=== PATIENT | male | born 1940 | race Caucasian/White ===

== ENCOUNTER 2017-06-15 00:11 | Observation (INO) | payer OTHER ==
[2017-06-15] MEDS ORDERED: Albuterol/Ipratropium NEB.SOL* Albuterol 2.5 MG/Ipratropium 0.5 MG 3 ML INH ONE ×3 (01:19→03:30)
[2017-06-15] MEDS ORDERED: Albuterol/Ipratropium NEB.SOL* Albuterol 2.5 MG/Ipratropium 0.5 MG 3 ML ONE (01:44)
[2017-06-15] MEDS ORDERED: methylPREDNISolone 125 MG* 2 ML VIAL IV ONE (01:45)
[2017-06-15 01:57] LABS: Hematocrit 41 % (42-52); Hemoglobin 13.8 g/dl (14.0-18.0); Mean Corpuscular HGB Conc 34 g/dl (31-36); Mean Corpuscular Hemoglobin 32 pg (27-31); Mean Corpuscular Volume 95 fL (80-94); Mean Platelet Volume 9 um3 (7.4-10.4); Red Blood Count 4.31 10^6/ul (4.0-5.4); Red Cell Distribution Width 14 % (10.5-15); White Blood Count 7.5 10^3/ul (3.5-10.8)
[2017-06-15 02:10] LABS: Albumin 3.8 g/dL (3.2-5.2); BUN/Creatinine Ratio 17.1 (8-20); C Reactive Protein 33.27 mg/L (< 5.00); Calcium 8.6 mg/dL (8.6-10.3); EGFR African American 87.9 (>60); EGFR Non-African American 68.3 (>60); Globulin 3.1 g/dL (2-4); Potassium 4.1 mmol/L (3.5-5.0); Total Bilirubin 0.7 mg/dL (0.2-1.0); Total Protein 6.9 g/dL (6.4-8.9)
[2017-06-15 02:13] LABS: Troponin I 0.01 ng/mL (<0.04)
[2017-06-15 02:28] LABS: TSH (Thyroid Stimulating Horm) 2.78 mcIU/mL (0.34-5.60)
[2017-06-15] MEDS ORDERED: Azithromycin IV(*) 500 MG in NS 0.9% 250 ML* 250 ML IVPB ONE (04:04)
[2017-06-15] MEDS ORDERED: cefTRIAXone(*) 1 GM in NS 0.9% 50 ML* 50 ML IVPB ONE (04:04)
[2017-06-15] MEDS ORDERED: Acetaminophen TAB* 325 MG PO ONE (04:22)
--- NOTE | 2017-06-15 04:43 | ED ---
Sae Lopez Thomas, scribed for Arturo Rosado MD on 06/15/17 at 0207 . Shortness of Breath - HPI Summary HPI Summary: The pt is a 76 y/o M with a Hx of CHF presenting to the ED c/o SOB that began yesterday and worsened today. The patient has treated the SOB with nothing E [employer]. He says that his current SOB does not feel like a CHF exacerbation; instead, it feels like bronchitis or PNA. He is on nebulizer treatment at time of evaluation which he says helps his SOB. Pt additionally c/o productive cough. Pt denies fever and CP. He is on diuretics, ASA 81, and Xarelto.PSHx of defibrillator and pacemaker. The patient is accompanied by two family members. - History of Current Complaint Chief Complaint: EDShortnessOfBreath Time Seen by Provider: 06/15/17 01:39 Hx Obtained From: Patient, Family/Card Grinder - two family members present Onset/Duration: Lasting Days - onset yesterday, Still Present, Worse Since - today Timing: Constant Dyspnea At: Rest Aggrevating Factors: Movement Alleviating Factors: Other - Nebulizer treatment Associated Signs & Symptoms: Negative - negative for CP and fever, Cough ( Productive) - Allergy/Home Medications Allergies/Adverse Reactions: Allergies Allergy/AdvReac Type Severity Reaction Status Date / Time No Known Allergies Allergy Verified 06/15/17 00:30 Home Medications: Home Medications Carvedilol [Coreg] 6.25 mg PO BID 06/15/17 [History Confirmed 06/15/17] Lisinopril [Zestril 5 MG-] 5 mg PO DAILY 06/15/17 [History Confirmed 06/15/17] Potassium Chloride [Micro-K] 10 meq PO DAILY 06/15/17 [History Confirmed ] PMH/Surg Hx/FS Hx/Imm Hx Previously Healthy: No Cardiovascular History: Reports: Hx Angina, Hx Auto Implanted Cardiovert Defib, Hx Congestive Heart Failure - 5 YEARS AGO, Hx Hypercholesterolemia, Hx Hypertension, Hx Pacemaker/ICD - 3-4 yrs ago following heart attack 4-5 yrs ago Respiratory History: Reports: Other Respiratory Problems/Disorders - seasonal allergies; occasionally uses resuce inhaler Comment Only: Hx Asthma - unknown, Hx Chronic Obstructive Pulmonary Disease ( COPD) - unknown GI History: Reports: Hx Gastroesophageal Reflux Disease History: Reports: Hx Benign Prostatic Hyperplasia, Other Problems/ Disorders - bladder cancer 2008 - Cancer History Cancer Type, Location and Year: bladder cancer, 2008 Hx Chemotherapy: Yes Hx Radiation Therapy: No - Surgical History Surgery Procedure, Year, and Place: multiple biopsies. bladder surgery 2008. mi with 2 stents 2010. hernia 2011. pacemaker/ aicd 2011. colonoscopy 2007- found polyps Hx Anesthesia Reactions: No Infectious Disease History: No Infectious Disease History: Denies: History Other Infectious Disease, Traveled Outside the [place] in Last 30 Days - Family History Known Family History: Positive: Cardiac Disease, Other - DENIES DM AND RENAL DISEASE - Social History Occupation: Retired Alcohol Use: Daily Alcohol Amount: 2 drinks per day Hx Substance Use: No Substance Use Type: Reports: None Hx Tobacco Use: Yes Smoking Status (MU): Former Smoker Review of Systems Negative: Fever Negative: Chest Pain Positive: Shortness Of Breath, Cough - productive All Other Systems Reviewed And Are Negative: Yes Physical Exam Triage Information Reviewed: Yes Vital Signs On Initial Exam: Initial Vitals Temp Pulse Resp BP Pulse Ox 97.3 F 80 22 134/69 89 06/15/17 00:15 06/15/17 00:15 06/15/17 00:15 06/15/17 00:15 06/15/17 00:15 Vital Signs Reviewed: Yes Appearance: Positive: Well-Appearing, No Pain Distress Skin: Positive: Warm, Skin Color Reflects Adequate Perfusion, Dry Head/Face: Positive: Normal Head/Face Inspection Eyes: Positive: EOMI, JAIR ENT: Positive: Normal ENT inspection Neck: Positive: Supple, Nontender Respiratory/Lung Sounds: Positive: Breath Sounds Present, Wheezes - bilaterally , Other - Moderately short of breath. Cardiovascular: Positive: RRR. Negative: Leg Edema Left, Leg Edema Right Abdomen Description: Positive: Nontender, Soft Bowel Sounds: Positive: Present Musculoskeletal: Positive: Normal, Strength/ROM Intact Neurological: Positive: Normal, Sensory/Motor Intact, Alert, Oriented to Person Place, Time Psychiatric: Positive: Affect/Mood Appropriate - Mitzi Coma Scale Coma Scale Total: 15 Diagnostics - Vital Signs Vital Signs Temp Pulse Resp BP Pulse Ox 06/15/17 01:48 96 06/15/17 01:39 69 18 100 06/15/17 01:30 75 33 129/73 97 06/15/17 01:09 132/68 06/15/17 00:15 97.3 F 80 22 134/69 89 - Laboratory Lab Results: Lab Results 06/15/17 Range/Units 01:24 WBC 7.5 (3.5-10.8) 10^3/ul RBC 4.31 (4.0-5.4) 10^6/ul Hgb 13.8 L (14.0-18.0) g/dl Hct 41 L (42-52) % MCV 95 H (80-94) fL MCH 32 H (27-31) pg MCHC 34 (31-36) g/dl RDW 14 (10.5-15) % Plt Count 168 (150-450) 10^3/ul MPV 9 (7.4-10.4) um3 Neut % (Auto) 78.3 (38-83) % Lymph % (Auto) 7.8 L (25-47) % [place] % (Auto) 12.7 H (1-9) % Eos % (Auto) 1.0 (0-6) % Baso % (Auto) 0.2 (0-2) % Absolute Neuts (auto) 5.9 (1.5-7.7) 10^3/ul Absolute Lymphs (auto) 0.6 L (1.0-4.8) 10^3/ul Absolute Monos (auto) 0.9 H (0-0.8) 10^3/ul Absolute Eos (auto) 0.1 (0-0.6) 10^3/ul Absolute Basos (auto) 0 (0-0.2) 10^3/ul Absolute Nucleated RBC 0 10^3/ul Nucleated RBC % 0 Result Diagrams: 06/15/17 01:24 06/15/17 01:24 Lab Statement: Any lab studies that have been ordered have been reviewed, and results considered in the medical decision making process. - Radiology CXR Radiology Interpretation Completed By: ED Physician - EKG 00:18 Cardiac Rate: NL - 79 BPM EKG Interpretation: Ventricular paced complex. Course/Dx - Course Course Of Treatment: BP noted and advised to follow up with PCP. Medications reviewed. IMPROVED IN ED BUT, STILL WHEEZING. ADMIT HOSPITALIST. - Diagnoses Provider Diagnoses: Bronchitis, COPD (chronic obstructive pulmonary disease) Discharge - Discharge Plan Condition: Fair Disposition: ADMITTED TO [facility] Referrals: Ranjit Alcocer MD [Primary Care Provider] - The documentation as recorded by the Sae hunt Thomas accurately reflects the service I personally performed and the decisions made by me, Arturo Rosado MD.
[2017-06-15] MEDS ORDERED: Benzonatate CAP* 100 MG PO PRN (06:51)
[2017-06-15] MEDS ORDERED: NS 0.9% 1000 ML* 1,000 ML IV SCH (07:00)
[2017-06-15] MEDS ORDERED: Nitroglycerin TAB 0.4 MG* 0.4 MG TAB SL PRN (07:36)
--- NOTE | 2017-06-15 07:45 | RAD ---
INDICATION: Short of breath COMPARISON: May 24, 2016 TECHNIQUE: An AP portable view obtained at 0200 hours is submitted. FINDINGS: Bones/Soft Tissues: There are no acute bony findings. There is a left-sided cardiac pacemaker/defibrillator Cardiomediastinal: The cardiac silhouette is enlarged. No interstitial congestion is seen.. Lungs: There are no infiltrates. Pleura: There are no pleural effusions. Other: None IMPRESSION: ENLARGED CARDIAC SILHOUETTE. PACEMAKER/DEFIBRILLATOR.
[2017-06-15] MEDS: Albuterol 2.5 MG/3 ML NEB.SOL* (0.083%) INH PRN (08:37)
[2017-06-15] MEDS: Famotidine TAB* 20 MG PO SCH (09:04)
[2017-06-15] MEDS: Lisinopril TAB* 5 MG PO SCH (09:04)
[2017-06-15] MEDS: guaiFENesin ER TAB 600 MG PO SCH ×2 (09:04→20:27)
[2017-06-15] MEDS: Potassium Chlor TAB* 10 MEQ TAB.ER PO SCH (09:05)
[2017-06-15] MEDS: Atorvastatin* 10 MG TAB PO SCH (09:05)
[2017-06-15] MEDS: Aspirin Low Dose CHEW TAB* 81 MG PO SCH (09:06)
[2017-06-15] MEDS: Vitamin THERAPEUTIC TAB PO SCH (09:06)
[2017-06-15] MEDS: Rivaroxaban TAB(*) 20 MG TAB PO SCH (09:06)
[2017-06-15] MEDS: Carvedilol TAB* 6.25 MG PO SCH ×2 (09:06→20:27)
[2017-06-15 09:38] LABS: Urine Bilirubin Negative (Negative); Urine Glucose Negative (Negative); Urine Nitrite Negative (Negative)
[2017-06-15] MEDS: Fluticasone NASAL SPRAY 50MCG* 16 gm SPRAY BTL BOTH NARES SCH (10:15)
--- NOTE | 2017-06-15 10:50 | HP ---
CC: Dr. Zimmer * HISTORY AND PHYSICAL: DATE OF ADMISSION: 06/15/17 PRIMARY CARE PROVIDER: Dr. Zimmer. CHIEF COMPLAINT: Shortness of breath. HISTORY OF PRESENT ILLNESS: Mr. Fitzpatrick is a 76-year-old male with extensive cardiac history, hypertension, hyperlipidemia, and bladder cancer who presents to the emergency room with complaints of progressive shortness of breath. The patient states that beginning approximately couple of days ago, began to feel very fatigued and mildly short of breath. The shortness of breath progressed to the point where yesterday he felt that he was unable to walk any significant distance without becoming severely winded. The patient has noted some moderate cough and sputum production. He felt that initially the sputum was clear. However, he did cough in front of me in the emergency room, the sputum was yellow green in color. The patient denies any fevers at home, but does state that two days ago, he had significant chills. 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 He denies any chest pain, PAST MEDICAL HISTORY: 1. CAD-STEMI, September 2010 with sudden cardiac arrest secondary to ventricular fibrillation post procedure, ICD placement 2011. 2. Bladder cancer stage 3. 3. Hyperlipidemia. 4. Hypertension. 5. BPH. 6. Atrial fibrillation. PAST SURGICAL HISTORY: 1. ICD placement. 2. Right inguinal hernia repair. 3. Left eye cataract extraction. MEDICATIONS: 1. Lisinopril 10 mg p.o. q.a.m., 5 mg p.o. q.p.m. 2. Xarelto 20 mg p.o. daily. 3. Pravastatin 20 mg p.o. daily. 4. Potassium chloride 10 mEq p.o. daily. 5. Coreg 6.25 mg p.o. b.i.d. 6. Hydrochlorothiazide 25 mg p.o. daily. 7. Flonase 2 squirts both nostrils daily. 8. Finasteride 5 mg p.o. q.h.s. 9. Pepcid 20 mg p.o. daily. 10. Aspirin 81 mg p.o. daily. 11. Nitroglycerin 0.4 mg SL q. 5 minutes p.r.n. chest pain. 12. Multivitamin 1 tab p.o. daily. ALLERGIES: No known drug allergies. FAMILY HISTORY: Mom in her 80s. She had a history of CVA. Dad at the age of 56 of an [facility]. SOCIAL HISTORY: The patient is a former smoker. He quit 50 years ago. He drinks 2 alcoholic beverages daily. 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 He is . He has 3 children. His Meghna would be his surrogate decision maker. REVIEW OF SYSTEMS: The patient denies any fevers, but does admit to chills and mild anorexia yesterday. No chest pain, no edema. He admits cough and shortness of breath as above. No abdominal pain, nausea, vomiting, constipation , diarrhea, or hematochezia, no hematuria, no dysuria, no focal weakness or sensory loss. No sudden changes in vision. No dysphagia. No joint pains, or muscle pains out of the ordinary. No rashes. No anxiety or depression. PHYSICAL EXAMINATION GENERAL: The patient is a well developed, elderly male, sitting in the stretcher, in no acute distress. VITAL SIGNS: Blood pressure 98/62, pulse 72, respirations 22, temp 99.6 (T-max 101.1), O2 sat 94% on 4 L. HEENT: Pupils are equal, they are round. There is evidence of left cataract extraction. Extraocular muscle are intact. Oropharynx is clear. Oral mucosa is moist. There is no submandibular, cervical, or supraclavicular adenopathy. NECK: Thyroid is not enlarged. No thyroid nodules are noted. PULMONARY: The patient has upper airway gurgling respirations; frequent, moist cough. Lungs are clear to auscultation bilaterally, though breath sounds are diminished at the left base. CARDIAC: Normal S1, S2. Regular rate and rhythm. I do not appreciate any murmurs. There is trace to 1+ bilateral lower extremity, pitting edema. ABDOMEN: Bowel sounds are present. Abdomen is soft, nontender, nondistended. MUSCULOSKELETAL: There is no cyanosis or clubbing of the digits. There is full active full range of motion of all 4 extremities. SKIN: Warm and dry. There are no rashes. The patient does have numerous seborrhoic keratoses noted on his back. NEUROLOGIC: Cranial nerves II through XII are grossly intact. Sensation is intact to light touch throughout. Strength is 5/5 and symmetric in both upper and lower extremities bilaterally. PSYCH: The patient is alert. He is oriented x3. Affect appears appropriate. LABORATORY DATA: WBC 7.5, hemoglobin 13.8, hematocrit 41, platelets 168, INR 1.32. Sodium 134, potassium 4.1, chloride 102, CO2 24, BUN 18, creatinine 1.05, glucose 118, lactic acid 0.9, calcium 8.6, magnesium 2.0. Bilirubin 0.7, AST 20 , ALT 18, alk phos 49, CPK 180, CK-MB 6, troponin 0.01, CRP 33.27, BNP 304. Albumin 3.8, lipase 20, TSH 2.78, influenza A and B negative. EKG reveals a ventricularly paced rhythm. Chest x-ray to my interpretation appears to be clear without any evidence of infiltrate or pulmonary edema. ASSESSMENT AND PLAN: Mr. Fitzpatrick is a 76-year-old male with extensive cardiac history, hypertension, hyperlipidemia, and benign prostatic hyperplasia who presents to the emergency room with complaints of progressive shortness of breath with associated cough, sputum production and chills. 1. Probable bronchitis. The patient appears to have bronchitis as there is no clear infiltrate noted on chest x-ray and no markedly elevated white blood cell count. The patient however is hypoxic with this. He is requiring 4 L of oxygen at this point to maintain a low 90 saturation. At this point, the patient will be admitted under observation status to the medical floor. He will continue on ceftriaxone and azithromycin for treatment of his bronchitis. At this point, I do not feel that he needs any IV steroids as he has no wheezing noted on exam. I will send off a sputum culture as well as urine legionella and Strep pneumoniae antigens. We will try to wean his O2 down to get him back to room air. 2. History of atrial fibrillation. Per the patient he states that a while ago his heart was noted to be "off." When I mentioned atrial fibrillation he states that that was what he as diagnosed with. He remains on Xarelto. At this point, he appears to be ventricularly paced on his EKG. 3. Coronary artery disease with ischemic cardiomyopathy. The patient will be maintained on his usual doses of Coreg and lisinopril. I have hold parameters on his lisinopril dose. I am going to hold his hydrochlorothiazide for now. We will be need to be mindful of not giving him too much fluid. At this point, I will however give him 1 L of normal saline. He has an ICD in place. 4. Hypertension. The patient's blood pressure has been under good control in the ER. He did dip into the 90s for a period of time, though his family state this is while he was sleeping. We will monitor this closely. 5. Hyperlipidemia. The patient will be maintained on statin. 6. Benign prostatic hyperplasia. The patient will continue on his usual dose of finasteride. 7. DVT prophylaxis. According to the Adult Thrombosis Prophylaxis Risk Factor Assessment Guide, the patient has a total risk factor score of 5, making him high risk. He is already on Xarelto and this will act as his DVT prophylaxis. 8. Code status is full and again the patient indicates that his , Meghna, would be his healthcare proxy. TIME SPENT: Sixty-five minutes was spent admitting this patient. [id number]/CPS #: [id number] MTDD
[2017-06-15] MEDS ORDERED: Lisinopril TAB* 5 MG PO SCH (21:00)
[2017-06-15] MEDS ORDERED: Finasteride TAB* 5 MG PO SCH (21:00)
[2017-06-16] MEDS ORDERED: cefTRIAXone VIAL(*) 1,000 MG in NS 0.9% 50 ML* 50 ML IVPB SCH (05:00)
[2017-06-16] MEDS ORDERED: Azithromycin IV(*) 500 MG in NS 0.9% 250 ML* 250 ML IVPB SCH (06:00)
[2017-06-16] MEDS: Rivaroxaban TAB(*) 20 MG TAB PO SCH (07:54)
[2017-06-16] MEDS: Carvedilol TAB* 6.25 MG PO SCH (07:54)
[2017-06-16] MEDS: Famotidine TAB* 20 MG PO SCH (07:54)
[2017-06-16] MEDS: Atorvastatin* 10 MG TAB PO SCH (07:54)
[2017-06-16] MEDS: guaiFENesin ER TAB 600 MG PO SCH (07:54)
[2017-06-16] MEDS: Potassium Chlor TAB* 10 MEQ TAB.ER PO SCH (07:54)
[2017-06-16] MEDS: Aspirin Low Dose CHEW TAB* 81 MG PO SCH (07:54)
[2017-06-16] MEDS: Lisinopril TAB* 5 MG PO SCH (07:55)
[2017-06-16] MEDS: Vitamin THERAPEUTIC TAB PO SCH (07:55)
[2017-06-16] MEDS: Fluticasone NASAL SPRAY 50MCG* 16 gm SPRAY BTL BOTH NARES SCH (07:57)
[2017-06-16] MEDS: Albuterol 2.5 MG/3 ML NEB.SOL* (0.083%) INH PRN (08:38)
[2017-06-16 12:01] VITALS: BP 104/70
--- NOTE | 2017-06-17 10:44 | DS ---
DISCHARGE SUMMARY: DATE OF ADMISSION: 06/15/17 DATE OF DISCHARGE: 06/16/17 PRIMARY CARE PHYSICIAN: Dr. Zimmer. MY ATTENDING WHILE IN THE HOSPITAL: Dr. Gregg Hawk * (DICTATED BY DOMINGO SOLIMAN) PRIMARY DISCHARGE DIAGNOSIS: Bronchitis, possible pneumonia. SECONDARY DIAGNOSES: Coronary artery disease with STEMI, AFib, and ICD placement in 2012, stage III bladder cancer, hyperlipidemia, hypertension, BPH, and atrial fibrillation. STUDIES DONE WHILE IN THE HOSPITAL: Chest x-ray read as enlarged cardiac silhouette, pacemaker defibrillator. Electrocardiogram shows ventricular paced complexes. No ST segment changes. No other abnormalities. MEDICATIONS ON DISCHARGE: 1. Prevacid 20 mg p.o. daily. 2. Nitroglycerin 0.4 mg sublingually q.5 minutes as needed for chest pain. 3. Finasteride 5 mg p.o. at bedtime. 4. Lisinopril 10 mg p.o. daily. 5. Famotidine 20 mg p.o. daily. 6. Fluticasone 2 sprays both nares daily. 7. Aspirin 81 mg p.o. daily. 8. Multivitamins 1 cap p.o. daily. 9. Xarelto 20 mg p.o. daily. 10. Potassium chloride 10 mEq p.o. daily. 11. Lisinopril 5 mg p.o. at bedtime. 12. Carvedilol 6.25 mg p.o. b.i.d. New medications on discharge: 1. Albuterol inhaler 1 puff q.4 hours as needed for wheezing. 2. Tessalon 200 mg p.o. t.i.d. as needed for cough. 3. Cefpodoxime 200 mg p.o. q.12 hours x24. 4. Guaifenesin 1200 mg p.o. b.i.d. Medications discontinued on discharge: Hydrochlorothiazide 25 mg p.o. daily. HOSPITAL COURSE: This is a summary of the hospital course. For more details, please see history and physical from Dr. Ella Nielsen on 06/15/17. In brief, Mr. Fitzpatrick is a 76-year-old male who presented to the emergency department on 06/15/17 with a couple of days of increased fatigue and shortness of breath to the point where he could not walk a significant distance without getting winded. The patient also had a cough with sputum production of colored sputum. The patient was admitted to the hospital with a presumptive diagnosis of bronchitis and started on steroids, antibiotics, and inhalers. The patient began to feel better overnight. The patient was on 3 L of oxygen while in the emergency department and was able to wean off entirely overnight. The patient continued to have a cough. This improved with medication. The patient was able to walk 10 times around the unit without oxygen or becoming short of breath. The patient stated that he felt ready to go home in the morning. The patient's urine antigen for Strep pneumo was positive. The patient denies any other acute events overnight or any other complaints while in the hospital. PHYSICAL EXAMINATION AT DAY OF DISCHARGE: General: The patient is a 76-year- old male who appears his stated age and sitting comfortably in the recliner in the hospital. Vital signs at 07:55 on 06/16/17, temperature 97.5, pulse rate 65 , respiratory rate 16, oxygen saturation 98% on room air, blood pressure 129/ 73. HEENT: Head normocephalic, atraumatic. Eyes: Sclerae anicteric. No conjunctival injection. Mouth: Pharynx nonerythematous. Mucous membranes moist. Neck: Supple, nontender. No lymphadenopathy. No carotid bruits auscultated. Cardiac: Regular rate and rhythm. No clicks, murmurs, gallops, or rubs. Dorsalis pedis, posterior tibialis, and radial pulses 2+ bilaterally. No edema noted on exam. Respiratory: No accessory muscle use. There are rhonchorous sounds with slight wheezing heard throughout the lung arnold. There are no crackles and there is good air exchange bilaterally. The patient has a frequent cough. Abdomen: Nontender, nondistended. Bowel sounds present and normoactive in all 4 quadrants. No hepatosplenomegaly. No abdominal bruits auscultated. Genitourinary: No suprapubic tenderness or CVA tenderness. Neuro: Alert and oriented x3. Normal gait. Cranial nerves II through XII grossly intact. Skin: Clean, dry, and intact. No cyanosis or clubbing. LABORATORY DATA: White blood cell count 7.5, hemoglobin 13.8. This is from . Platelet count 168. INR 1.32. Sodium 134, potassium 4.1, chloride 102 , carbon dioxide 24, anion gap 8, BUN 18, creatinine 1.05, glucose 118. AST 20 , ALT 18. Troponin 9.01. CRP 33.27. BNP is 304. TSH 2.78. Urine shows 1+ ketones , otherwise benign. Influenza A and B negative. Negative Legionella. Positive S. pneumo urine antigen. Sputum Gram stain shows +2 neutrophils, +2 epithelial cells, 4+ gram-positive cocci, 3+ gram-negative bacilli, and 3+ gram- positive bacilli. DISCHARGE PLAN: The patient was discharged to home. The patient is stable enough and no longer needs supplementary oxygen. The patient will be prescribed albuterol, Tessalon, cefuroxime, and guaifenesin for home. The patient will not receive steroids due to dramatic improvement and history of CHF and diabetes. The patient will follow up with his primary care doctor in a week. The patient should return to the ED for shortness of breath where he feels he cannot catch his breath or walk as previously. The patient will stop taking hydrochlorothiazide due to normotensive state while in the hospital. The patient should follow up with his primary care doctor about when and if to resume his medication. TIME SPENT: Approximately 60 minutes were spent on this discharge, half of which was spent [id number] with the patient obtaining the history and physical and discussing treatment plans. DOMINGO SOLIMAN [id number]/CPS #: [id number] MTDD
== END 2017-06-16 12:00 | disposition home or self-care (01) ==
LOC: ED 00:11 → MED 06:51
PROVIDERS: ADMIT Hospitalist; ATTEND Hospitalist
DX: J40 Bronchitis, not specified as acute or chronic (principal); I25.10 Atherosclerotic heart disease of native coronary artery without angina pectoris; I48.91 Unspecified atrial fibrillation; I10 Essential (primary) hypertension; E78.5 Hyperlipidemia, unspecified; N40.0 Benign prostatic hyperplasia without lower urinary tract symptoms; Z95.810 Presence of automatic (implantable) cardiac defibrillator; C67.9 Malignant neoplasm of bladder, unspecified; Z79.01 Long term (current) use of anticoagulants; Z79.82 Long term (current) use of aspirin; Z79.899 Other long term (current) drug therapy; I25.2 Old myocardial infarction; Z87.891 Personal history of nicotine dependence
CPT/HCPCS: 36415; 71010; 80053; 81003; 82550; 82553; 83605; 83690; 83735; 83880; 84443; 84484; 85025; 85610; 85730; 86140; 87040; 87070; 87077; 87205; 87502; 87899; 93005; 94640; 99285; A9270-GY; G0378; J0456; J0696; J2930

== ENCOUNTER → 2018-09-18 10:17 | Day surgery (SDC) | payer MEDICARE ==
[~2018-09-18 10:17] MED LIST: Albuterol HFA INHALER* 8 gm MDI INH PRN; Aspirin 81 mg CHEW TAB* 81 MG TAB.CHEW PO SCH; CARVEDILOL 6.25 MG PO SCH; Diazepam TAB(*) 5 MG ONE; Finasteride TAB* 5 MG PO SCH; Heparin 2 UNITS/ML IVPREMIX* 2,000 ML IV ONE; Hydrochlorothiazide TAB* 50 MG PO SCH; Iodixanol 320 (CONTRAST) 100 ML SDV ONE; Lidocaine 1% INJ* 10 MG/ML 30 ML SDV ONE; Lisinopril TAB* 5 MG PO SCH; Midazolam* 1 MG/ML 10 ML VIAL (10 MG) ONE; NON FORMULARY MED* (Multivitamin [Multivitamins] 1 CAP) PO SCH; NS 0.9% 1000 ML* 1,000 ML IV SCH; Nitroglycerin TAB 0.4 MG* 0.4 MG TAB SL PRN; POTASSIUM CHLORIDE 10 MEQ PO SCH; PRAVASTATIN 20 MG PO SCH; Rivaroxaban TAB(*) 20 MG TAB PO SCH; fentaNYL* 50 MCG/ML 2 ML VIAL (100 MCG VIAL) ONE
[2018-09-18 16:13] VITALS: BP 120/79
--- NOTE | 2018-09-18 16:29 | CATH ---
CC: Dr. Michelle Zimmer; Dr. Lito Mendoza, [facility] * CARDIAC CATHETERIZATION REPORT: DATE OF PROCEDURE: 09/18/18 - [facility] CATH INDICATION FOR PROCEDURE: Asked by Dr. Lito Mendoza (the patient's primary associate manager) to perform diagnostic cardiac catheterization to reassess his coronary arteries in light of high-risk nuclear stress test suggesting significant left ventricular systolic dysfunction with prior large anteroapical and distal inferior wall myocardial infarction with prior history of stenting of the proximal LAD in the distant past. PROCEDURE: Coronary arteriography, left heart catheterization, left ventriculography. CONSENT: The patient was interviewed and examined in the holding area where the risks and benefits were explained. He understood them and wished to proceed. PRE-CARDIAC CATHETERIZATION LABORATORY RESULTS: Hemoglobin and hematocrit of 13.9 and 41, platelet count of 197,000. BUN and creatinine of 27 and 1.1, sodium 139, potassium 4.6, chloride 104, bicarb 30. MEDICATIONS GIVEN DURING THE PROCEDURE: Included: 1. 2.5 mg of Valium orally. 2. IV fluids. APPROACH UTILIZED: The right radial artery was assessed in the holding area by ultrasound and found to be of an appropriate size; however, the reverse Barbeau was a D. There were similar findings on the left radial approach as well. Decision was made to use the left femoral artery approach. EQUIPMENT UTILIZED: 1. Left femoral artery sheath, 11-cm [place] sheath. 2. Diagnostic coronary catheters, a [place] FL4 curve and a 5[place] FR4 curve catheter. 3. The diagnostic guidewire utilized was a 260 length J-tip exchange wire. 4. The left heart catheterization catheter was a [place] 145-degree angled pigtail catheter. 5. The closure device utilized was a 5-[place] Mynx closure device. DESCRIPTION OF PROCEDURE: The patient was scheduled for the diagnostic cardiac catheterization and his last dose of Xarelto was at least 48 hours prior to the procedure. He had received 2 doses of Lovenox the day before the procedure, 1 in the morning and 1 at night and has had no further Lovenox since the last night. He was worked into the cardiovascular laboratory where a formal time-out was performed. He was prepped and draped in sterile fashion. The left coronary was anesthetized with 1% lidocaine. The left femoral artery was cannulated using an anterior wall, only stick and the sheath was placed. Coronary arteriography was then performed followed by central aortic pressure utilizing the pigtail catheter in the ascending aorta. The catheter was then passed across the aortic valve into the left ventricle where left ventricular pressure was recorded and left ventriculography was performed utilizing a total of 28 cc of Visipaque dye at a rate of 14 cc per second. The catheter was then pulled back across the aortic valve to recheck gradient. Following this, an ejection was made into the left femoral sheath to assess eligibility to utilize a closure device. It was found to be acceptable for this and as such a 5-[place] Mynx closure device was deployed with good hemostasis. The patient tolerated the procedure well. The total contrast used was 93 cc of Visipaque dye. The radiation exposure included 4.2 minutes of fluoro time. The air kerma radiation was 1265 milligray. The DAP radiation was 7560 microgray per meter square. RESULTS: HEMODYNAMIC DATA: Left heart catheterization revealed central aortic pressure of 110/63 with a mean of 83. Left ventricular pressure was 112 over left ventricular end- diastolic pressure of 8 to 10 mmHg. LEFT VENTRICULOGRAPHY: Performed in the SERRANO projection, revealed severe global left ventricular hypokinesis involving the whole anteroapical and distal inferior wall. There appeared to be preservation of the basal inferior to mid inferior wall as well as the very most proximal portion of the anterior wall. The overall ejection fraction on a post PVC beat is estimated at 25% to 30%. CORONARY ARTERIOGRAPHY: A. Left coronary artery: 1. Left main - widely patient with no significant narrowing seen. 2. Left anterior descending artery - the proximal portion of the left anterior descending artery revealed a stent placed in it. There is mild in- stent restenosis in the proximal portion of 20%. The rest of the stent showed no significant in- stent restenosis. There was no significant disease seen through the LAD or its thin diagonal branches. The LAD tapered as it traversed to the apical region and to some degree onto the distal inferior wall. There were mild luminal irregularities within the mid portion of the left anterior descending artery in a clearly somewhat small caliber mid to distal LAD system. The proximal to mid portion of the LAD had mild 20% narrowing seen involving the distal portion of the stent. This did not appear to be in-stent restenosis. 3. Circumflex artery - a codominant vessel supplying a trifurcation marginal branch followed by a thin first obtuse marginal branch and a moderate bifurcating mid obtuse marginal branch. Past this point, there were multiple low-lying posterior left ventricular branches and a probable left-sided PDA. There was no significant disease seen throughout the circumflex system. Of note , several of the low-lying posterior LV branches were small in caliber diffusely. B. Right coronary artery - a possible codominant vessel, small in appearance , only supplying the most proximal portion of the inferior wall with a small caliber PDA. There were multiple right ventricular branches seen. The mid segment of this vessel had an area of 30% stenosis noted. OVERALL ASSESSMENT: No significant focal stenotic coronary artery disease with severe left ventricular systolic dysfunction most likely on the basis of an ischemic cardiomyopathy from prior myocardial infarction. Of note, left ventricular end- diastolic pressure was normal to low suggesting that he is currently in a good volume status. Continued ongoing aggressive medical management of LV dysfunction is appropriate. He already has an implantable defibrillator in place. Of note, his ICD is a BiV pacing ICD to optimize resynchronization. Continued ongoing cardiac care will be provided by his primary associate manager Dr. Kelly MD who was made aware of the results. The patient will be scheduled for a wound check within one week's time. [id number]/[facility] #: [id number] ANGELINE
== END | disposition home or self-care (01) ==
LOC: CHICATH 10:17
PROVIDERS: ATTEND Internal Medicine Cardiovascular Disease
DX: I25.10 Atherosclerotic heart disease of native coronary artery without angina pectoris (principal); I42.9 Cardiomyopathy, unspecified; E78.00 Pure hypercholesterolemia, unspecified; I10 Essential (primary) hypertension; I48.91 Unspecified atrial fibrillation; I34.0 Nonrheumatic mitral (valve) insufficiency; Z79.01 Long term (current) use of anticoagulants; I44.7 Left bundle-branch block, unspecified; Z95.810 Presence of automatic (implantable) cardiac defibrillator
CPT/HCPCS: 76937; 93458; A9270-GY; C1769; C1887; J1644; J2250; J3010

== ENCOUNTER → 2018-10-28 13:36 | Day surgery (SDC) | payer MEDICARE ==
--- NOTE | 2018-10-27 03:32 | HP ---
CC: Dr. Mendoza; Dr. Zimmer * PREOPERATIVE HISTORY AND PHYSICAL: DATE OF ADMISSION: 10/28/18 This patient is scheduled for same-day surgery admission by Dr. Kerr on 10/28/18. DATE OF EXAMINATION: 10/24/18. ATTENDING SURGEON: Dr. Leonel Kerr * (dictated by Melisa Osullivan NP). CHIEF COMPLAINT: Right inguinal hernia, recurrent. HISTORY OF PRESENT ILLNESS: The patient is an 78-year-old male who presented for evaluation with Dr. Kerr, 07/24/18 with a 6-month history of swelling in the right groin. He had a previous open right inguinal hernia repair with mesh in 2011. He denies any nausea, vomiting, or change in urinary or bowel habits. He denies any chronic constipation. He denies any signs or symptoms to suggest incarceration or strangulation. He required preoperative cardiology clearance due to his history of severe LV dysfunction and mitral regurgitation as well as a history of atrial fibrillation. He has an implanted pacemaker/ defibrillator. He was found to have a decrease in LV function in July 2018 , when trying to get clearance for the hernia repair. Subsequently, he had a cardiac stress test that showed a large infarct in the LAD territory and had a cardiac catheterization that showed no focal stenotic coronary disease with severe left ventricular systolic dysfunction on the basis of ischemic cardiomyopathy from prior myocardial infarction. The recommendation was made for further medical management. At this time, he has been optimized for surgery. Please see the attached cardiology note dated 10/24/18 from nurse practitioner, Leti Akbar, from [facility]. Dr. Kerr has examined the patient and noted a reducible right inguinal hernia; he recommended a laparoscopic right inguinal hernia repair with mesh as a same-day surgery procedure. He described the nature of the surgical procedure, the relevant risks and benefits, and today, I reviewed the expected postoperative care and recovery. The patient has had a chance to ask questions and stated that he understands the information and he is satisfied with the answers given to his questions. He will sign surgical consent on the day of surgery. PAST MEDICAL HISTORY: Coronary artery disease and mitral regurgitation; ischemic cardiomyopathy from prior myocardial infarction; hypertension; bladder cancer; implanted pacemaker defibrillator for atrial fibrillation; and history of ventricular tachycardia. PAST SURGICAL HISTORY: Bladder surgery for cancer 2008, open right inguinal hernia repair 2011 with mesh plug, implanted pacemaker defibrillator 2013. MEDICATIONS: 1. Aldactone 25 mg p.o. daily. 2. Entresto 24/26 mg 1 tablet p.o. b.i.d. 3. Finasteride 5 mg p.o. every other day. 4. Xarelto 20 mg p.o. daily and he took his last dose preoperatively on Saturday , 10/24/18. 5. Aspirin 81 mg p.o. daily and he will hold that as of 10/25/18. 6. Multivitamin 1 tablet daily. 7. Carvedilol 6.25 mg p.o. b.i.d. 8. Pravastatin 20 mg p.o. daily at bedtime. 9. Albuterol 2 puffs every 4 hours as needed for wheezing or shortness of breath. 10. Nitrostat 0.4 mg 1 tab sublingual as needed every 5 minutes x3. ALLERGIES: No known drug allergies. FAMILY HISTORY: Father due to myocardial infarction at age 58. Mother with a history of stroke, due to natural causes. No known anesthesia complications, bleeding tendencies, or clotting disorders. SOCIAL HISTORY: He is and owns a farm with beef cattle. He plays golf during the summer 2 to 3 times a week; he remains active on the farm. He is a former smoker; smoked 2 packs per day for 12 years and quit in 1967. He drinks on average 2 alcoholic beverages per day and denies the use of substances. REVIEW OF SYSTEMS: Constitutional: No fevers or chills. No excessive fatigue or weight loss. Endocrine: No diabetes or thyroid disease. Hematologic: He states that he bruises easily while he is on Xarelto. He denies any bleeding tendencies and has never received a blood transfusion. Respiratory: No dyspnea on exertion. No chronic cough. Cardiovascular: No anginal chest pain. No palpitations. Please see the attached cardiology clearance note from for further details. Gastrointestinal: No nausea, vomiting, diarrhea, GI bleeding or constipation. No change in bowel habits. Genitourinary: No dysuria. No change in urinary habits. Musculoskeletal: No complaints of joint or back pain today. Integumentary: No chronic rashes or skin changes. Neurologic: No headache or blurred vision. He reports occasional lightheadedness, but denies alycia dizziness. His cardiology clearance note indicates that his medications will be appropriately adjusted. General: No history of previous anesthesia complications. No history of deep vein thrombosis or pulmonary embolism. PHYSICAL EXAMINATION GENERAL SURVEY: The patient is an 78-year-old male, well developed, overweight , in no acute distress. VITAL SIGNS: Height 67.5 inches, weight 220 pounds and 12 ounces, body mass index 34.1, blood pressure 112/70, pulse 72 and regular, respiratory rate 14. HEENT: Benign. NECK: Supple. No elevated JVP. No carotid bruits. BACK: No CVA tenderness. LUNGS: Breath sounds bilaterally clear and equal. HEART: Regular rate and rhythm. S1, S2. No murmurs, rubs, or gallops heard. ABDOMEN: Active bowel sounds. Soft, nondistended, nontender throughout. Well - healed right inguinal scar, reducible right inguinal hernia. EXTREMITIES: Warm with trace edema in the lower extremities. No ulcerations. GENITALIA: Deferred. RECTAL: Deferred. NEUROLOGIC: Alert and oriented x3. Steady gait. SKIN: Warm, dry, intact. IMPRESSION: Recurrent right inguinal hernia. PLAN: Same-day surgery admission to Dr. Kerr' service on 10/28/18, for laparoscopic right inguinal hernia repair with mesh. The patient took his last dose of Xarelto 10/24/18; last dose of daily aspirin 10/25/18; and has been cleared from Cardiology to proceed. MCKAY OSULLIVAN NP [id number]/[facility] #: [id number] ANGELINE
[~2018-10-28 13:36] MED LIST changes: +Acetaminophen IV 1GM/100ML * 1,000 MG/100 ML VIAL IVPB ONE; +Acetaminophen IV 1GM/100ML * 100 ML ONE; -Albuterol HFA INHALER* 8 gm MDI INH PRN; -Aspirin 81 mg CHEW TAB* 81 MG TAB.CHEW PO SCH; +Buffered Lidocaine 1% SYRIN* 1 ML/SYRINGE INTRADERM ONE; +Bupivacaine 0.25% W/EPI* 10 ML SDV ONE; -CARVEDILOL 6.25 MG PO SCH; +Chloroprocaine 2%* 20 ML VIAL ONE; -Diazepam TAB(*) 5 MG ONE; +Etomidate* 2 MG/ML 10 ML VIAL ONE; -Finasteride TAB* 5 MG PO SCH; +Glycopyrrolate IV* 0.2 MG/ML 1 ML VIAL ONE; -Heparin 2 UNITS/ML IVPREMIX* 2,000 ML IV ONE; +Heparin VIAL(*) 5000 UNITS/ML VIAL (FIVE THOUSAND) ONE; -Hydrochlorothiazide TAB* 50 MG PO SCH; -Iodixanol 320 (CONTRAST) 100 ML SDV ONE; +Ketorolac INJ* 30 MG/ML 1 ML VIAL ONE; +Lactated Ringers 1000 ML Bag* 1,000 ML IV SCH; +Levalbuterol HFA INHALER* 1 PUFF MDI ONE; -Lidocaine 1% INJ* 10 MG/ML 30 ML SDV ONE; +Lidocaine 2% PF * 5 ML VIAL ONE; -Lisinopril TAB* 5 MG PO SCH; +Metoclopramide IV* 5 MG/ML 2 ML VIAL IV PRN; -Midazolam* 1 MG/ML 10 ML VIAL (10 MG) ONE; -NON FORMULARY MED* (Multivitamin [Multivitamins] 1 CAP) PO SCH; -NS 0.9% 1000 ML* 1,000 ML IV SCH; +Naloxone* 0.4 MG/ML 1 ML VIAL IV PRN; +Neostigmine Methylsulfate* 3 MG/3 ML SYRINGE ONE; -Nitroglycerin TAB 0.4 MG* 0.4 MG TAB SL PRN; +Ondansetron INJ* 2 MG/ML VIAL ONE; -POTASSIUM CHLORIDE 10 MEQ PO SCH; -PRAVASTATIN 20 MG PO SCH; +Phenylephrine INJ* 10 MG/ML 1 ML VIAL (10 MG) ONE; -Rivaroxaban TAB(*) 20 MG TAB PO SCH; +Rocuronium* 10 MG/ML VIAL ONE; +Sugammadex * 200 MG/2 ML VIAL IV PUSH ONE; +ceFAZolin 2 GM PREMIX in ORs 2 GM/50 ML BAG IVPB ONE; +fentaNYL* 50 MCG/ML 2 ML VIAL (100 MCG VIAL) IV PRN; +oxyCODONE TAB* 5 MG TAB ONE; +oxyCODONE TAB* 5 MG TAB PO PRN
[2018-10-28 20:22] VITALS: BP 125/87
--- NOTE | 2018-10-29 00:04 | OP ---
CC: Michelle Zimmer MD; Lito Mendoza MD * DATE OF OPERATION: 10/28/18 - [facility] DATE OF : 36 SURGEON: Leonel Kerr MD MOBILITY DEVELOPER: Janae Haynes NP ANESTHESIOLOGIST: Alyssa Perez DO ANESTHESIA: General endotracheal. PRE-OP DIAGNOSIS: Recurrent right inguinal hernia. POST-OP DIAGNOSIS: Recurrent right inguinal hernia. OPERATIVE PROCEDURE: Laparoscopic preperitoneal repair of recurrent right inguinal hernia with mesh with peritoneoscopy. ESTIMATED BLOOD LOSS: Less than 50 mL. IV FLUIDS: Crystalloid. SPECIMENS: None. DRAINS: None. COMPLICATIONS: None. COUNTS: The instruments, needle, and sponge counts were correct. DESCRIPTION OF PROCEDURE: The patient was brought to the operating room and placed on the table supine. Sequential compression devices were placed on both lower extremities. General anesthesia was administered. Chen catheter was placed. He was positioned and padded appropriately. He was prepped and draped in usual sterile fashion. Time-out was performed. Local anesthetic was infiltrated into the skin and soft tissue prior to making each incision. Entry was through an infraumbilical curvilinear incision. After identifying the anterior rectus fascia to the right of midline, this was incised transversely. The underlying muscles retracted laterally and the preperitoneal balloon dissector was positioned down the pubic symphysis. This was insufflated partially under direct visualization. Then it was noted that the inferior epigastric vessels were being dissected away from the rectus muscles; therefore, the balloon dissector removed and the 12-mm blunt port was placed. Carbon dioxide was insufflated to a pressure of 10 mmHg. Two 5-mm trocars were placed in the lower midline. The inferior epigastric vessels were maintained in the anterior position as the dissection proceeded bluntly from the midline laterally. There was a large indirect inguinal hernia sac present that was adherent to a previous mesh plug. The hernia seemed to be coursing inferior to the plug and through the inguinal canal. The sac could not be dissected free, it was opened along its anterior aspect and there was no sliding component. The sac was divided circumferentially from inside preserving the spermatic cord components. Once the sac was free, endoscopic clip placement was used to approximate the sac so that mesh could be placed. First, the dissection proceeded laterally to the anterior superior iliac spine. Then, a large size 3DMax hernia patch was placed into the peritoneal space and a ____ retractor was used secure to William ligament ensuring that the mesh covered the direct, indirect and femoral spaces. After the completion of the mesh positioning, the preperitoneal space was allowed to desufflate and the 12- mm port was repositioned into the peritoneal cavity so that the peritoneoscopy could be performed. Upon inspection, it appeared that a number of the clips were becoming loose so that the peritoneal defect was opening. At this point, the 5 mm ports were also repositioned into the peritoneal cavity and a 3-0 PDS suture was used in a running fashion to close the peritoneum completely covering the mesh. Sutures were clipped proximally and distally in lieu of tying and then the ports removed under direct visualization and carbon dioxide was released. The infraumbilical site was closed in two layers with 0 Vicryl for the anterior and posterior rectus fascia. The skin incisions were closed with 4-0 Monocryl in subcuticular fashion. Steri-Strips were applied. The patient tolerated procedure well, was extubated, and transferred to the Recovery in stable condition. [id number]/[facility] #: [id number] [facility]ITAL[facility]
== END | disposition home or self-care (01) ==
LOC: OR 13:36
PROVIDERS: ATTEND Surgery
DX: K40.91 Unilateral inguinal hernia, without obstruction or gangrene, recurrent (principal); I25.10 Atherosclerotic heart disease of native coronary artery without angina pectoris; I34.0 Nonrheumatic mitral (valve) insufficiency; I25.5 Ischemic cardiomyopathy; I10 Essential (primary) hypertension; Z95.0 Presence of cardiac pacemaker; Z85.51 Personal history of malignant neoplasm of bladder
CPT/HCPCS: A9270-GY; C1781; J0690; J1644; J1885; J2400; J2405; J2710; J3010

== ENCOUNTER → 2019-01-12 08:43 | Day surgery (SDC) | payer MEDICARE ==
[~2019-01-12 08:43] MED LIST changes: -Acetaminophen IV 1GM/100ML * 1,000 MG/100 ML VIAL IVPB ONE; -Acetaminophen IV 1GM/100ML * 100 ML ONE; +Acetaminophen TAB* 325 MG PO PRN; -Buffered Lidocaine 1% SYRIN* 1 ML/SYRINGE INTRADERM ONE; -Bupivacaine 0.25% W/EPI* 10 ML SDV ONE; -Chloroprocaine 2%* 20 ML VIAL ONE; +Diazepam TAB(*) 5 MG ONE; -Etomidate* 2 MG/ML 10 ML VIAL ONE; -Glycopyrrolate IV* 0.2 MG/ML 1 ML VIAL ONE; -Heparin VIAL(*) 5000 UNITS/ML VIAL (FIVE THOUSAND) ONE; -Ketorolac INJ* 30 MG/ML 1 ML VIAL ONE; -Lactated Ringers 1000 ML Bag* 1,000 ML IV SCH; -Levalbuterol HFA INHALER* 1 PUFF MDI ONE; +Lidocaine 1% INJ* 10 MG/ML 30 ML SDV ONE; -Lidocaine 2% PF * 5 ML VIAL ONE; -Metoclopramide IV* 5 MG/ML 2 ML VIAL IV PRN; +Midazolam* 1 MG/ML 5 ML VIAL (5 MG) ONE; -Naloxone* 0.4 MG/ML 1 ML VIAL IV PRN; -Neostigmine Methylsulfate* 3 MG/3 ML SYRINGE ONE; -Ondansetron INJ* 2 MG/ML VIAL ONE; -Phenylephrine INJ* 10 MG/ML 1 ML VIAL (10 MG) ONE; -Rocuronium* 10 MG/ML VIAL ONE; -Sugammadex * 200 MG/2 ML VIAL IV PUSH ONE; +ceFAZolin 1 GM/10 ML flush(*) SYRINGE for pocket flush (cardiology) FLUSH ONE; -ceFAZolin 2 GM PREMIX in ORs 2 GM/50 ML BAG IVPB ONE; +ceFAZolin* 2 GM* ONE DOSE (Duplex) IVPB; -fentaNYL* 50 MCG/ML 2 ML VIAL (100 MCG VIAL) IV PRN; -oxyCODONE TAB* 5 MG TAB ONE; -oxyCODONE TAB* 5 MG TAB PO PRN
[2019-01-12 11:51] VITALS: BP 125/73
--- NOTE | 2019-01-12 22:31 | OP ---
CC: Dr. Lito Mendoza * DATE OF OPERATION: 01/12/19 - [facility] CATH DATE OF : 36 SURGEON: Silas Lemon MD. ANESTHESIA: Local anesthesia with conscious sedation. PRE-OP DIAGNOSES: Cardiomyopathy, ICD at elective replacement indicator. POST-OP DIAGNOSIS: Cardiomyopathy, ICD at elective replacement indicator. OPERATIVE PROCEDURE: Biventricular ICD generator change. ESTIMATED BLOOD LOSS: Nil. COMPLICATIONS: None. INDICATION: Patient is an 78-year-old gentleman with a history of cardiomyopathy, history of ICD implantation in 2011 with an upgrade of his device to a biventricular device in 2013. He has been followed by Dr. Mendoza. His ICD has reached elective replacement indicator. Generator change was recommended. DESCRIPTION OF PROCEDURE: Patient was brought to the procedure room in a fasting state. Informed consent had been obtained prior to the procedure. All labs were reviewed. Patient was placed supine on the procedure table. His left deltopectoral area was cleaned and draped in the usual fashion; 1% lidocaine was used for local anesthesia. A 4.5 cm incision was made over the previous incision site and blunt dissection was carried down to the fiber sheath. The fiber sheath was opened and the ICD was removed from the pocket. The ICD was detached from all of its lead and a new generator was attached. The new generator is a Medtronic model JPQL5A0, serial number [id number]. The device was placed in the pocket and the surgical incision was closed in three layers. Before sterile field was broken, the device was interrogated and all leads were functioning normally. All impedances were normal. The explanted device is a Medtronic model [id number], serial number [id number]. Patient was returned to the holding area in stable condition. [id number]/[facility] #: [id number] [facility]
== END | disposition home or self-care (01) ==
LOC: CHICATH 08:43
PROVIDERS: ATTEND Specialist
DX: Z45.02 Encounter for adjustment and management of automatic implantable cardiac defibrillator (principal); I25.2 Old myocardial infarction; I25.5 Ischemic cardiomyopathy; I48.1 Persistent atrial fibrillation; Z79.01 Long term (current) use of anticoagulants; E78.2 Mixed hyperlipidemia; I25.10 Atherosclerotic heart disease of native coronary artery without angina pectoris; I44.7 Left bundle-branch block, unspecified; I34.8 Other nonrheumatic mitral valve disorders; Z87.891 Personal history of nicotine dependence
CPT/HCPCS: 33264; 88300; 99156; 99157; A9270-GY; J0690; J2250; J3010

== ENCOUNTER 2019-07-15 08:32 | Emergency (ER) | payer BC, MEDICARE ==
--- NOTE | 2019-07-15 09:56 | UC ---
Lower Extremity/Ankle HPI - HPI Summary HPI Summary: Patient is an 79-year-old male with history of A. fib presenting with right posterior calf pain, swelling, and bruising 1 week has gradually worsened. Patient states he fell one week ago [place] but denies any specific injury at that point. States over the next few days after that his leg began swelling. Notes pain with walking. Denies shortness of breath, difficulty breathing, and chest pain. Denies fever, chills, nausea, vomiting, headaches. Patient states that he just thinks the swelling should've gone down by now. - History of Current Complaint Chief Complaint: UCLowerExtremity Stated Complaint: LEG INJURY Hx Obtained From: Patient Onset/Duration: Gradual Onset, Lasting Days Severity Currently: Moderate Pain Intensity: 5 Pain Scale Used: 0-10 Numeric - Allergies/Home Medications Allergies/Adverse Reactions: Allergies Allergy/AdvReac Type Severity Reaction Status Date / Time No Known Allergies Allergy Verified 07/15/19 08:43 Home Medications: Home Medications Rosuvastatin (NF) [Crestor (NF)] 5 mg PO 1700 07/15/19 [History Confirmed ] PMH/Surg Hx/FS Hx/Imm Hx Cardiovascular History: Hypertension, Atrial Fibrillation - Surgical History Surgical History: Yes Surgery Procedure, Year, and Place: multiple skin biopsies- benign. cataract extraction left eye with IOL 01/15 [facility] [place]. bladder tumor 2008 [facility]. bladder CA [facility]. mi with 2 stents 2010 [facility] [place]. right inguinal hernia repair 2011 [facility] [place]. pacemaker/ aicd 10/09/2011 [facility]. PACER/DEFIB 11/10/13 [facility] [place]. colonoscopy- polyps 2007, 12/24/16 - Family History Known Family History: Positive: Cardiac Disease, Other - DENIES DM AND RENAL DISEASE - Social History Alcohol Use: Daily Alcohol Amount: 2 Substance Use Type: None Smoking Status (MU): Former Smoker Amount Used/How Often: 2 PPD FOR 12+ YRS Length of Time of Smoking/Using Tobacco: 12+ YRS Have You Smoked in the Last Year: No When Did the Patient Quit Smoking/Using Tobacco: 1967 - Immunization History Most Recent Influenza Vaccination: 06/29/13 Most Recent Tetanus Shot: unknown Most Recent Pneumonia Vaccination: 05/20/2008 Review of Systems All Other Systems Reviewed And Are Negative: Yes Constitutional: Positive: Negative Skin: Positive: Bruising Respiratory: Positive: Negative. Negative: Shortness Of Breath, Cough Cardiovascular: Positive: Negative. Negative: Palpitations, Chest Pain Gastrointestinal: Positive: Negative Neurovascular: Positive: Negative Musculoskeletal: Positive: Arthralgia, Edema, Myalgia. Negative: Decreased ROM Neurological: Negative: Weakness, Paresthesia, Numbness Physical Exam Triage Information Reviewed: Yes Appearance: Well-Appearing, No Pain Distress, Well-Nourished Vital Signs: Initial Vital Signs Temp 97.1 F 07/15/19 08:37 Pulse 75 07/15/19 08:37 Resp 18 07/15/19 08:37 BP 113/64 07/15/19 08:37 Pulse Ox 98 07/15/19 08:37 Vital Signs Reviewed: Yes Eyes: Positive: Conjunctiva Clear ENT: Positive: Hearing grossly normal Neck: Positive: Supple Respiratory Exam: Normal Respiratory: Positive: Lungs clear, Normal breath sounds, No respiratory distress. Negative: Crackles, Rhonchi, Stridor, Wheezing Cardiovascular Exam: Normal Cardiovascular: Positive: RRR, No Murmur, Pulses Normal - no palpable R pedal or ankle pulse d/t/ edema, Brisk Capillary Refill Musculoskeletal: Positive: Strength Intact, ROM Intact, Edema @ - RLE Neurological: Positive: Alert Psychological: Positive: Age Appropriate Behavior Skin Exam: Other - ecchymosis noted of R posterior ankle, heel. Large area of ecchymosis noted on posterior R thigh Diagnostics - Radiology US RLE Radiology Interpretation Completed By: Radiologist Summary of Radiographic Findings: IMPRESSION: NO RIGHT LOWER EXTREMITY DEEP VEIN THROMBOSIS Lower Extremity Course/Dx - Course Course Of Treatment: Discussed negative ultrasound for DVT with patient. Instructed him to rest and elevate the leg. I educated him on signs and symptoms of compartment syndrome and to go to the ED with worsening symptoms. Instructed to follow up with PCP if symptoms persist. Patient's vital signs normal here. Patient was understanding and agreed with the treatment plan. - Differential Dx/Diagnosis Provider Diagnosis: Traumatic ecchymosis of multiple sites of right lower extremity Discharge ED - Sign-Out/Discharge Documenting (check all that apply): Patient Departure All imaging exams completed and their final reports reviewed: Yes - Discharge Plan Condition: Stable Disposition: HOME Patient Education Materials: Compartment Syndrome (DC), Leg Edema (ED) Referrals: Michelle Zimmer MD [Primary Care Provider] - If Needed Additional Instructions: As discussed, your ultrasound today did not show a blot clot in your leg. It is likely that your bruising and swelling is a result of an injury from your fall last week. Continue to elevate your leg to help reduce swelling. You may apply ice and/or heat to the area a few times daily to help relieve any pain. Follow up with your PCP if your symptoms persist. Go to the Emergency Room if your symptoms or pain worsen. - Billing Disposition and Condition Condition: STABLE Disposition: Home
[2019-07-15 10:53] VITALS: BP 137/77
== END 2019-07-15 11:17 | disposition home or self-care (01) ==
LOC: UCEAST 08:32
DX: S90.01XA Contusion of right ankle, initial encounter (principal); S70.11XA Contusion of right thigh, initial encounter; I10 Essential (primary) hypertension; Z87.891 Personal history of nicotine dependence; W19.XXXA Unspecified fall, initial encounter; Y92.79 Other farm location as the place of occurrence of the external cause
CPT/HCPCS: 99211; G0463